=== PATIENT | male | born 1965 | race Caucasian/White ===

== ENCOUNTER 2017-05-26 12:07 | Emergency (ER) | payer SELFPAY ==
[2017-05-26] MEDS ORDERED: PROPARACAINE HCL OPTH 15ML BTL OPTH ONE (12:46)
[2017-05-26] MEDS ORDERED: ERYTHROMYCIN OPTH OINT 3.5GM OPTH ONE (12:56)
--- NOTE | 2017-05-26 12:59 | Emergency Department Record ---
History of Present Illness - General Chief complaint: Eye Problem Stated complaint: FB IN EYE Time Seen by Provider: 05/26/17 12:43 Source: Patient Mode of Arrival: Ambulatory Limitations: No limitations - History of Present Illness Initial comments: The patient is here due to developing eye pain since last evening. 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 He denies any blurred vision. His Td is UTD. chief complaint: Foreign body Onset/Timin -: Days(s) Onset Description: Sudden Location: Right eye Place: Work If Injury: Occurred while hammering/grinding Eye Symptoms: Blurry vision, Pain Consistency: Constant Associated Symptoms: None Treatments Prior to Arrival: None - Related Data Visual acuity (L) = 20/: 20 Visual acuity (R) = 20/: 20 With correction: Yes Hx Tetanus Toxoid Vaccination: Yes Year of Tetanus Vaccination: 2016 Patient Tetanus UTD (within 5 yrs): Yes Allergies Allergy/AdvReac Type Severity Reaction Status Date / Time lanolin Allergy Intermediate blisters Unverified 05/07/17 12:53 Travel Screening - Travel/Exposure Within Last 30 Days Have you traveled within the last 30 days?: No Past Medical History - SOCIAL HISTORY Smoking Status: Never smoker Alcohol Use: None Drug Use: None - RESPIRATORY Hx Respiratory Disorders: Yes Hx Asthma: Yes - CARDIOVASCULAR Hx Cardio Disorders: Yes Hx Cardiac Cath: Yes - NEURO Hx Neuro Disorders: No - GI Hx GI Disorders: No - Hx Genitourinary Disorders: No - ENDOCRINE Hx Endocrine Disorders: No - MUSCULOSKELETAL Hx Musculoskeletal Disorders: No - PSYCH Hx Psych Problems: No - HEMATOLOGY/ONCOLOGY Hx Hematology/Oncology Disorders: No Family Medical History Any Significant Family History?: No Physical Exam - General General Appearance: Alert, Oriented x3, Cooperative, No acute distress - Head Head exam: Atraumatic, Normocephalic, Normal inspection - Eye Eye exam: Normal appearance, PERRL, EOMI, Other (There are 3 fb's on the R and 1 on the L. Two of the 3 foreign bodies were removed on the R and the L was also removed with a Qtip. There are mild abrasions present after the removal.). negative: Conjunctival injection, Periorbital swelling, Periorbital tenderness With correction: Yes Image of Eyes: 1 - Fb. 2 - FB 3 - FB 4 - FB Course Vital Signs 05/26/17 12:32 Temperature 98.2 F Pulse Rate 77 Respiratory 18 Rate Blood Pressure 154/85 Pulse Ox 96 - Reevaluation(s) Reevaluation #1: I did explain to the patient that I was able to removed 3/4 FB's on the cornea. We will refer him to an Opthomologist for further eval. I did discuss the case with Dr. Bagley and he would like to see the patient in the office this afternoon. 05/26/17 13:03 Disposition Disposition: Discharge Clinical Impression: Corneal FB (foreign body) Qualifiers: Encounter type: initial encounter Laterality: unspecified laterality Qualified Code(s): T15.00XA - Foreign body in cornea, unspecified eye, initial encounter Disposition: Home, Self-Care Instructions: Eye Foreign Body (ED) Additional Instructions: Please proceed to Dr. Bagley office in [place] for further evaluation. Referrals: LISA BAGLEY [MEDICAL DOCTOR] - Forms: Patient Portal Access Time of Disposition: 13:08 Quality - Quality Measures Quality Measures: N/A - Blood Pressure Screening View Details: Yes Does Patient Have Any of the Following: No Blood Pressure Classification: Hypertensive Reading Systolic Measurement: 141 Diastolic Measurement: 91 Screening for High Blood Pressure: < Pre-Hypertensive BP, F/U Documented > [ [id number]] Pre-Hypertensive Follow-up Interventions: Referral to alternative/primary care provider.
== END 2017-05-26 13:33 | disposition home or self-care (01) ==
LOC: ER 12:07
DX: T15.01XA Foreign body in cornea, right eye, initial encounter (principal); W22.8XXA Striking against or struck by other objects, initial encounter; Y92.63 Factory as the place of occurrence of the external cause; Y99.0 Civilian activity done for income or pay
CPT/HCPCS: 65220; 99283

== ENCOUNTER 2018-09-27 10:22 | Day surgery (SDC) | payer BC ==
[2018-09-27] MEDS ORDERED: MIDAZOLAM HCL 2MG/2ML VIAL IV ONE (10:23)
[2018-09-27] MEDS ORDERED: PROPOFOL 10 MG/ML VIAL IV ONE (10:23)
[2018-09-27] MEDS ORDERED: LIDOCAINE 2% MDV (20MG/ML) 20ML VIAL IV ONE (10:23)
--- NOTE | 2018-09-28 09:50 | Operative Note ---
DATE OF SURGERY: 09/27/2018 OPERATION: COLONOSCOPY to the cecum with multiple cold biopsy forceps polypectomies. INDICATION: Colorectal cancer screening. The patient reports that he has a family history of colon cancer in his grandfather and possibly his father. He presents today for his first colonoscopy. He did complain of hematuria and for this reason was advised to talk to Dr. Harvey about this for further workup and treatment. ANESTHESIA: Intravenous sedation was administered by the department of anesthesiology and included Diprivan and Versed titrated to effect. PROCEDURE: Following informed consent from this alert individual including a discussion of the risks and benefits of the procedure and an opportunity for the patient to ask questions, the patient was in the left lateral decubitus position. A digital rectal examination was performed. No abnormalities were noted. Following this, the Olympus [id number] video colonoscope was inserted into the rectum without resistance. The rectal mucosa distally had numerous diminutive 3 mm polyps noted which were initially traversed. The colonoscope was then farther advanced up through the colon to the level of the cecum without much difficulty. The cecum was defined by noting the appendiceal orifice and ileocecal valve. From the base of the cecum, the colonoscope was then slowly withdrawn. The colon preparation was good. The ascending colon was unremarkable. In the transverse colon, there were 2 diminutive polyps noted each removed with application of biopsy forceps. They measured 3 mm in size. The colonoscope was farther withdrawal back through the descending colon into the sigmoid colon and ultimately the rectum. Within the rectum, there were multiple numerous diminutive 3 mm polyps noted and many of these polyps were removed with biopsy forceps. Retroflexion in the rectum revealed polyps as well. The endoscope was straightened and withdrawn. The patient tolerated the procedure well and was returned to the recovery area in stable condition. IMPRESSION: 1. Two 3 mm polyps removed from the transverse colon with biopsy forceps. 2. Multiple rectal diminutive polyps noted measuring 3 mm in size. Multiple polyps biopsied and removed. RECOMMENDATIONS: Further recommendations will be forthcoming pending results of pathology obtained today. The patient again was advised to follow up with Dr. Harvey about his hematuria. As always, thank you for allowing me to participate in the care of your patient. CC: MD CLIFTON Sanchez
== END 2018-09-27 12:45 | disposition home or self-care (01) ==
LOC: HOP 10:22
PROVIDERS: ATTEND Internal Medicine Gastroenterology
DX: Z12.11 Encounter for screening for malignant neoplasm of colon (principal); Z80.0 Family history of malignant neoplasm of digestive organs; D12.3 Benign neoplasm of transverse colon; K62.1 Rectal polyp; R31.9 Hematuria, unspecified

== ENCOUNTER 2018-12-17 13:05 | Emergency (ER) | payer BC ==
[2018-12-17] MEDS ORDERED: ASPIRIN 81 MG CHEWABLE TABLET PO ONE (13:12)
[2018-12-17] MEDS ORDERED: DILTIAZEM 25MG/5ML VIAL IV ONE ×2 (13:13→13:28)
--- NOTE | 2018-12-17 13:34 | Emergency Department Record ---
History of Present Illness - General Stated Complaint: BLANCA Time Seen by Provider: 12/17/18 13:12 Source: Patient - History of Present Illness Initial Comments: Patient became SOB and chest pain which started at 10:00 am and worse through out the day and upon arrival he said he was having an asthma attack. Upon arrival his heat rate 250 and a wide complex tachycardia and shortly after arrival he spontaneously went to a narrow complex tachycardia and rate of 150 to 170 with atrial fibrillation and he admits to coffee time two and history of asthma but no problems for more than 20 years. Patient says he has a chest pressure. He also admits to heart cath at 28 years of age - Related Data Allergies Allergy/AdvReac Type Severity Reaction Status Date / Time lanolin Allergy Intermediate blisters Unverified 11/12/18 07:11 Penicillins Allergy PT UNSURE Unverified 11/12/18 07:11 OF REACTION ai dish soap Allergy Intermediate dry hands, Uncoded 06/10/18 08:04 bumps, red skin, white bumps, Review of Systems Reviewed: No additional complaints except as noted below Constitutional: Reports: As per HPI. Denies: Chills, Fever, Malaise, Night sweats, Weakness, Weight change Eyes: Reports: As per HPI. Denies: Eye discharge, Eye pain, Photophobia, Vision change ENT: Reports: As per HPI. Denies: Congestion, Dental pain, Ear pain, Epistaxis , Hearing loss, Throat pain Respiratory: Reports: As per HPI, Dyspnea. Denies: Cough, Hemoptysis, Stridor, Wheezes Cardiovascular: Reports: As per HPI, Chest pain. Denies: Arrhythmia, Dyspnea on exertion, Edema, Murmurs, Orthopnea, Palpitations, Paroxysmal nocturnal dyspnea, Rheumatic Fever, Syncope Endocrine: Reports: As per HPI. Denies: Fatigue, Heat or cold intolerance, Polydipsia, Polyuria Gastrointestinal: Reports: As per HPI. Denies: Abdominal pain, Constipation, Diarrhea, Hematemesis, Hematochezia, Melena, Nausea, Vomiting Genitourinary: Reports: As per HPI. Denies: Dysuria, Frequency, Hematuria, Incontinence, Retention, Testicular pain, Testicular mass, Urgency Musculoskeletal: Reports: As per HPI. Denies: Arthralgia, Back pain, Gout, Joint swelling, Myalgia, Neck pain Skin: Reports: As per HPI. Denies: Bruising, Change in color, Change in hair/ nails, Lesions, Pruritus, Rash Neurological: Reports: As per HPI. Denies: Abnormal gait, Confusion, Headache, Numbness, Paresthesias, Seizure, Tingling, Tremors, Vertigo, Weakness Psychiatric: Reports: As per HPI. Denies: Anxiety, Auditory hallucinations, Depression, Homicidal thoughts, Suicidal thoughts, Visual hallucinations Hematological/Lymphatic: Reports: As per HPI. Denies: Anemia, Blood Clots, Easy bleeding, Easy bruising, Swollen glands Past Medical History - SOCIAL HISTORY Smoking Status: Never smoker - RESPIRATORY Hx Asthma: Yes - CARDIOVASCULAR Hx Cardiac Cath: Yes - NEURO Hx Neuro Disorders: No Hx CVA: No Hx Dizziness: No Hx Headaches: No Hx Neuropathy: No Hx Parkinson's Disease: No Hx Seizures: No Hx Speech Problem: No Hx TIA: No Hx Weakness: No Hx Paralysis: No - GI Hx GI Disorders: No Hx Abdominal Pain: No Hx Celiac Disease: (wheat allergies) Hx GI Bleed: No Hx Reflux: No Hx Hepatitis/Jaundice: No Hx Hiatal Hernia: No Hx Irritable Bowel: No Hx Liver Disease: No Hx Nausea/Vomiting: No Hx Obstructive Bowel: No Hx Pancreatitis: No Hx Rectal Bleeding: No Hx Ulcer: No Hx Wt Loss/Wt Gain: No Hx Cirrhosis: No - Hx Genitourinary Disorders: No - ENDOCRINE Hx Endocrine Disorders: No Hx Diabetes: No Hx Thyroid Disease: No - MUSCULOSKELETAL Hx Musculoskeletal Disorders: No - PSYCH Hx Psych Problems: No Hx Anxiety: No Hx Depression: No - HEMATOLOGY/ONCOLOGY Hx Hematology/Oncology Disorders: No Hx Blood Disorders: No Hx Cancer: No Family Medical History Family Hx Comment (NOT TO BE USED IN PLACE OF ITEMS BELOW): Maternal Grandpa - Colon Cancer Hx Cancer: Grandparents *Cancer Comment: Maternal Grandpa - Colon Cancer Physical Exam - General General Appearance: Alert, Oriented x3, Cooperative, Severe distress - Head Head exam: Normal inspection - Eye Eye exam: Normal appearance, PERRL Pupils: Normal accommodation - ENT ENT exam: Normal exam, Mucous membranes moist, Normal external ear exam, Normal orophraynx, TM's normal bilaterally Ear exam: Normal external inspection. negative: External canal tenderness Nasal Exam: Normal inspection. negative: Discharge, Sinus tenderness Mouth exam: Normal external inspection, Tongue normal Teeth exam: Normal inspection. negative: Dental caries Throat exam: Normal inspection. negative: Tonsillar erythema, Tonsillar exudate - Neck Neck exam: Normal inspection, Full ROM. negative: Tenderness - Respiratory Respiratory exam: Normal lung sounds bilaterally. negative: Respiratory distress - Cardiovascular Cardiovascular Exam: Tachycardia (initially wide complex) - GI/Abdominal GI/Abdominal exam: Soft, Normal bowel sounds. negative: Tenderness - Rectal Rectal exam: Deferred - exam: Deferred - Extremities Extremities exam: Normal inspection, Full ROM, Normal capillary refill. negative: Tenderness - Back Back exam: Reports: Normal inspection, Full ROM. Denies: Muscle spasm, Rash noted, Tenderness - Neurological Neurological exam: Alert, Normal gait, Oriented X3, Reflexes normal - Psychiatric Psychiatric exam: Normal affect, Normal mood - Skin Skin exam: Dry, Intact, Normal color, Warm Course - Reevaluation(s) Reevaluation #1: patient having PVC and heart rate down to 130 and he is feeling better. Will start a cardizem drip of 5 mg per hour 12/17/18 13:47 Reevaluation #2: Discussed case with Dr Skelton and he wants me to talk to Dr Mihir Avilez who is fashion consultant selling at [facility] 12/17/18 14:34 Reevaluation #3: discussed case with Dr. Mihir Avilez and will transfer to [facility] 12/17/18 14:36 Reevaluation #4: discussed case with Dr. Mihir Avilez and will call [facility] hospitalist and transfer to [facility]. 12/17/18 14:43 Reevaluation #5: Discussed case with Dr Hogan and will transfer to [facility] 12/17/18 14:58 Medical Decision Making - Data Complexity MDM Data: Labs Ordered and/or Reviewed (trop I negative), X-Ray Ordered and/or Reviewed (chest xray portable borderline cardiomegaly and possible infiltrates or atelectasis), EKG Ordered and/or Reviewed (wide complex tachcardia and than narrow complex tachycardia with atrial fib and RVR, T wave inversion I and avl) - Lab Data Result diagrams: 12/17/18 13:35 12/17/18 13:35 Disposition Clinical Impression: Tachycardia Atrial fibrillation Qualifiers: Atrial fibrillation type: unspecified Qualified Code(s): I48.91 - Unspecified atrial fibrillation Disposition: Acute Care Hospital Transfer Condition: (3) Guarded Time of Disposition: 13:42 Quality - Quality Measures Quality Measures: N/A - Blood Pressure Screening Does Patient Have Any of the Following: No Blood Pressure Classification: Normal BP Reading Systolic Measurement: 109 Diastolic Measurement: 78 Screening for High Blood Pressure: < Normal BP, F/U Not Required > [G8783]
[2018-12-17 13:41] LABS: BASO % 0.2 % (0-6); EOS % 0.5 % (0-6); GRAN % 68.5 % (47-80); HEMATOCRIT 42.4 % (42.0-52.0); HEMOGLOBIN 13.5 gm/dl (14.0-18.0); LYMPH % 23.8 % (16-45); MEAN CELL VOLUME 92.2 fl (81-97); MEAN CORPUSCULAR HEMOGLOBIN 29.3 pg (27-33); MEAN CORPUSCULAR HGB CONC 31.8 g/dl (32-36); MEAN PLATELET VOLUME 10.8 fl (7.4-10.4); PLATELET COUNT 241 K/uL (130-400); RED CELL DISTRIBUTION WIDTH 14.8 % (11.5-14.5); WHITE BLOOD COUNT W/O DIFF 8.3 K/uL (4.2-12.2)
[2018-12-17] MEDS ORDERED: DILTIAZEM HCL 125 MG in 0.9 % SODIUM CHLORIDE 100ML 100 ML IV SCH (13:45)
[2018-12-17] MEDS ORDERED: HEPARIN SODIUM 1000 UNIT/1 ML 10ML VIAL IVP ONE (13:50)
[2018-12-17 13:54] LABS: BLOOD UREA NITROGEN 22 mg/dL (6-20); EST GLOMERULAR FILTRATION RATE > 60 mL/min; PARTIAL THROMBOPLASTIN TIME 28.9 SECONDS (24.5-39.1)
[2018-12-17 13:57] LABS: GLUCOSE,RANDOM 190 mg/dL (74-109)
[2018-12-17] MEDS ORDERED: HEPARIN SODIUM/D5W 25,000 UNITS/500 ML BAG IV SCH (14:00)
--- NOTE | 2018-12-21 04:30 | RADIOLOGY REPORT ---
DATE: 12/17/2018 at 1353. EXAM: PORTABLE CHEST. HISTORY: Shortness of breath and tachycardia. TECHNIQUE: A single mobile upright view of the chest is obtained. COMPARISON: None. FINDINGS: There is moderate elevation of the left hemidiaphragm. Minor patchy opacities in each lung base likely relating to atelectasis rather than infiltrate. The heart projects at the upper limits of normal in size. No pulmonary venous hypertension is seen. Evaluation of the left hemithorax is limited by superimposed external cardiac monitoring leads. IMPRESSION: 1. LIMITED PORTABLE EXAMINATION. 2. LOW LUNG VOLUMES WITH ELEVATION OF THE LEFT HEMIDIAPHRAGM. 3. MINOR PATCHY OPACITIES IN EACH LUNG BASE CONSISTENT WITH ATELECTASIS. 4. BORDERLINE CARDIOMEGALY WITHOUT PULMONARY VENOUS HYPERTENSION. Job Number: [id number] MTDD
== END 2018-12-17 15:42 | disposition short-term general hospital (02) ==
LOC: ER 13:05
DX: I47.2 Ventricular tachycardia (principal); I47.1 Supraventricular tachycardia; I48.0 Paroxysmal atrial fibrillation; R06.02 Shortness of breath
CPT/HCPCS: 71045; 80048; 84484; 85025; 85610; 85730; 93005; 93010; 96365; 96366; 96368; 96375; 99285